=== PATIENT | male | born 1960 | race African-American/Black ===

== ENCOUNTER 2016-11-27 12:29 | Emergency (ER) | payer MEDICAID ==
--- NOTE | 2016-11-27 12:55 | ER Document Report ---
ED Medical Screen (RME) - General Stated Complaint: POSSIBLE ALLERGIC REACTION Notes: lip swelling started this am at 9am patient has been taking colchicine daily for one year for gout HDS, stable airway, able to talk and swallow I have greeted and performed a rapid initial assessment of this patient. A comprehensive ED assessment and evaluation of the patient, analysis of test results and completion of the medical decision making process will be conducted by additional ED providers. TRAVEL OUTSIDE OF THE [place] IN LAST 30 DAYS: No - Related Data Allergies/Adverse Reactions: No Known Allergies Allergy (Verified 11/27/16 12:54) Past Medical History - Past Medical History Cardiac Medical History: Reports: Hx Hypertension - Immunizations Hx Diphtheria, Pertussis, Tetanus Vaccination: Yes
--- NOTE | 2016-11-27 15:18 | ER Document Report ---
ED General - General Mode of Arrival: Ambulatory Information source: Patient TRAVEL OUTSIDE OF THE [place] IN LAST 30 DAYS: No - HPI Patient complains to provider of: swollen upper lip Onset: This morning Associated symptoms: Other - See above - General Chief Complaint: Lip Swelling Stated Complaint: POSSIBLE ALLERGIC REACTION Notes: Patient is a 56 year old male, with a past medical history including HTN and gout, who presents to the emergency department complaining of lip swelling secondary to a possible allergic reaction. Patient reports the swelling began at around 0900 this morning. Patient states he went to Dr. Baez and received a shot and then was told to come to the ED. Patient states that the swelling seems to have subsided now. Patient currently takes Allopurinol once a day, Colchicine 2x a day, and Amlodipine/benazepril. (LINSEY SERRANO) - Related Data Allergies/Adverse Reactions: No Known Allergies Allergy (Verified 11/27/16 12:54) Past Medical History - General Information source: Patient - Social History Smoking Status: Current Every Day Smoker Chew tobacco use (# tins/day): No Frequency of alcohol use: None Drug Abuse: None Family History: Reviewed & Not Pertinent, CAD, CVA, Hyperlipidemia, Hypertension Patient has suicidal ideation: No Patient has homicidal ideation: No - Past Medical History Cardiac Medical History: Reports: Hx Hypertension - Immunizations Hx Diphtheria, Pertussis, Tetanus Vaccination: Yes Review of Systems - Review of Systems Constitutional: No symptoms reported EENT: See HPI, Mouth swelling Cardiovascular: No symptoms reported Respiratory: No symptoms reported Gastrointestinal: No symptoms reported Genitourinary: No symptoms reported Male Genitourinary: No symptoms reported Musculoskeletal: No symptoms reported Skin: No symptoms reported Hematologic/Lymphatic: No symptoms reported Neurological/Psychological: No symptoms reported -: Yes All other systems reviewed and negative Physical Exam - Vital signs Interpretation: Normal - General General appearance: Appears well, Alert - HEENT Mouth/Lips: Other - Swollen upper lip Pharynx: Normal - Respiratory Respiratory status: No respiratory distress - Extremities General upper extremity: Normal inspection General lower extremity: Normal inspection - Neurological Neuro grossly intact: Yes Cognition: Normal Orientation: AAOx4 [place] Coma Scale Eye Opening: Spontaneous Alex Coma Scale Verbal: Oriented [place] Coma Scale Motor: Obeys Commands [place] Coma Scale Total: 15 Speech: Normal - Psychological Associated symptoms: Normal affect, Normal mood - Skin Skin Temperature: Warm Skin Moisture: Dry Skin Color: Normal Course - Re-evaluation Re-evalutation: 11/27/16 15:37 This 56-year-old male patient reports onset of upper lip swelling this morning shortly after taking a dose of colchicine. On exam there is no swelling of the posterior pharynx, uvula or tongue. The only edema is to the upper lip. The patient has been on colchicine for over a year, has also been on allopurinol for over a year. The colchicine bottle he has is dated 07/10/2016. He also takes a combination pill of amlodipine and benazepril. The patient was seen in the office where he received an injection in the buttock. He states the swelling has improved since that time. I called the office to find out the name of the injection he received prior to being sent to emergency room and it was Depo-Medrol 160 mg IM. I was also told by the PA that this was the patient's first dose of colchicine, that he had only filled the prescription on 11/10/2016 and today was the first time he ever took it. It turns out he filled the most recent prescription on that day, but had medication left over from his prior prescription and that was the one he was taking and produced a bottle. That prescription was filled on 07/10/2016. Patient states he has been taking that medication for over a year. I believe the benazepril is most likely cause of his diffuse upper lip swelling. He reports the swelling has gone down quite a bit since this morning. (HUSSEIN ROSADO) - Vital Signs Vital signs: Temp Pulse Resp BP Pulse Ox 98.1 F 75 14 143/88 H 96 11/27/16 12:54 11/27/16 12:54 11/27/16 12:54 11/27/16 12:54 11/27/16 12:54 (LINSEY SERRANO) (HUSSEIN ROSADO) Discharge - Discharge Clinical Impression: Angioedema Qualifiers: Encounter type: initial encounter Qualified Code(s): T78.3XXA - Angioneurotic edema, initial encounter Condition: Stable Disposition: HOME, SELF-CARE Additional Instructions: Angioedema: Angioedema is an allergic swelling of the soft tissues of the body. The lips and mouth are most commonly involved. Medicication allergy is a common cause, especially BOAZ inhibitor medicine (used for blood pressure control). Food, even something you've eaten frequently, can cause angioedema. In many cases it's not obvious what caused the swelling. Acute treatment may include adrenalin and antihistamines. If the cause is known, you must avoid this food or medicine in the future. If angioedema affects your air passages, it can be life-threatening. Return at once if you develop shortness of breath, faintness, severe pain, inability to swallow, or if swelling worsens.swelling worsens. YOUR LIP SWELLING IS LIKELY DUE TO THE BENAZOPRIL IN YOUR BLOOD PRESSURE MEDICATION. YOU SHOULD STOP TAKING THAT MEDICATION IMMEDIATELY. YOU WILL BE GIVE A PRESCRIPTION FOR THE AMLODIPINE PART OF YOUR BLOOD PRESSURE MEDICINE. FOLLOW UP WITH YOUR DOCTOR WEDNESDAY TO CHECK YOUR BLOOD PRESSURE AND TO ADJUST YOUR MEDICATIONS NEEDED. RETURN TO THE EMERGENCY ROOM IMMEDIATELY IF THE SWELLING GETS WORSE. Prescriptions: Amlodipine Besylate [Norvasc 10 mg Tablet] 10 mg PO DAILY #30 tablet Scribe Attestation: 11/27/16 15:46 I personally performed the services described in the documentation, reviewed and edited the documentation which was dictated to the scribe in my presence, and it accurately records my words and actions. (HUSSEIN ROSADO) Scribe Documentation - Scribe Written by Chele:: chele Hauser, 11/27/16, 0445 acting as scribe for :: Gabriel
[2016-11-27 16:19] VITALS: BP 139/81
== END 2016-11-27 16:02 | disposition home or self-care (01) ==
LOC: ER 12:29
DX: R22.0 Localized swelling, mass and lump, head (principal); T78.3XXA Angioneurotic edema, initial encounter; I10 Essential (primary) hypertension; M10.9 Gout, unspecified; F17.200 Nicotine dependence, unspecified, uncomplicated
CPT/HCPCS: 99283

== ENCOUNTER 2017-01-11 18:12 | Emergency (ER) | payer MEDICAID ==
--- NOTE | 2017-01-11 19:28 | ER Document Report ---
ED Medical Screen (RME) - General Stated Complaint: LIGHTHEADED, DIZZY,WEAK Time seen by provider: 19:26 Mode of Arrival: Ambulatory Information source: Patient Notes: 56-year-old male presents to ED for lightheadedness and dizziness states he passed out at work today. States she is on blood pressure medicine and he did take that this morning. States a couple gauze were standing around him told him to wake up and then he came to. States he hit the ground with his face as he has some abrasions on his face. States he vomited once today before he fell none since he fell. Consult to Dr. Zimmer and he stated that she get a head CT as well as lab work. I have greeted and performed a rapid initial assessment of this patient. A comprehensive ED assessment and evaluation of the patient, analysis of test results and completion of medical decision making process will be conducted by an additional ED providers. TRAVEL OUTSIDE OF THE [place] IN LAST 30 DAYS: No - Related Data Allergies/Adverse Reactions: No Known Allergies Allergy (Verified 11/27/16 12:54) Past Medical History - Past Medical History Cardiac Medical History: Reports: Hx Hypertension Renal/ Medical History: Denies: Hx Peritoneal Dialysis - Immunizations Hx Diphtheria, Pertussis, Tetanus Vaccination: Yes
[2017-01-11 21:20] LABS: APPEARANCE,URINE CLEAR; BILIRUBIN,URINE NEGATIVE (NEGATIVE); GLUCOSE, URINE NEGATIVE (NEGATIVE); KETONES,URINE NEGATIVE (NEGATIVE); LEUKOCYTE ESTERASE,URINE TRACE (NEGATIVE); NITRITE,URINE NEGATIVE (NEGATIVE); PROTEIN,URINE NEGATIVE (NEGATIVE); URINE SPECIFIC GRAVITY 1.011; UROBILINOGEN,URINE NEGATIVE mg/dL (<2.0)
[2017-01-11 21:21] LABS: ABSOLUTE BASOPHILS # (AUTO) 0.1 10^3/uL (0.0-0.2); ABSOLUTE LYMPHOCYTES (AUTO) 1.6 10^3/uL (0.5-4.7); ABSOLUTE MONOCYTES (AUTO) 0.5 10^3/uL (0.1-1.4); ABSOLUTE NEUT (AUTO) 5.3 10^3/uL (1.7-8.2); BASOPHILS % (AUTO) 0.7 % (0-2); EOSINOPHILS % (AUTO) 0.4 % (0-6); HEMATOCRIT 47.1 % (37.9-51.0); HEMOGLOBIN 15.3 g/dL (13.5-17.0); HGB HCT DIFFERENCE -1.2; LYMPHOCYTES % (AUTO) 20.9 % (13-45); MEAN CORPUSCULAR HEMOGLOBIN 28.5 pg (27.0-33.4); MEAN CORPUSCULAR HGB CONC 32.4 g/dL (32.0-36.0); MEAN CORPUSCULAR VOLUME 88 fl (80-97); MONOCYTES % (AUTO) 6.4 % (3-13); RED BLOOD COUNT 5.36 10^6/uL (4.35-5.55); RED CELL DISTRIBUTION WIDTH 15.4 % (11.5-14.0); SEGMENTED NEUTROPHILS % (AUTO) 71.6 % (42-78); WHITE BLOOD COUNT 7.4 10^3/uL (4.0-10.5)
[2017-01-11 21:35] LABS: ALANINE AMINOTRANSFERASE 51 U/L (21-72); ALBUMIN 4.7 g/dL (3.5-5.0); ALKALINE PHOSPHATASE 68 U/L (38-126); ANION GAP 12 (5-19); ASPARTATE AMINO TRANSFERASE 39 U/L (17-59); BILIRUBIN,DIRECT 0.2 mg/dL (0.0-0.4); BILIRUBIN,TOTAL 0.4 mg/dL (0.2-1.3); BLOOD UREA NITROGEN 15 mg/dL (7-20); CALCIUM 10.9 mg/dL (8.4-10.2); CARBON DIOXIDE 27 mmol/L (22-30); CHLORIDE 102 mmol/L (98-107); CREATINE KINASE 430 U/L (55-170); CREATININE RESULT 1.11 mg/dL (0.52-1.25); GLUCOSE 97 mg/dL (75-110); POTASSIUM 4.5 mmol/L (3.6-5.0); SODIUM 141.3 mmol/L (137-145); TOTAL PROTEIN 8.4 g/dL (6.3-8.2)
[2017-01-11 21:46] LABS: CREATINE KINASE MB 2.71 ng/mL (<4.55); TROPONIN I < 0.012 ng/mL
[2017-01-12] MEDS ORDERED: ONDANSETRON 4 MG TAB.RAPDIS PO ONE (02:04)
--- NOTE | 2017-01-12 02:04 | ER Document Report ---
ED General - General Chief Complaint: Dizziness Stated Complaint: LIGHTHEADED, DIZZY,WEAK Mode of Arrival: Ambulatory Notes: Patient is a 56-year-old male with past medical history of essential hypertension who presents after an episode of syncope today. 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 He began to feel lightheaded, nauseated and then did pass out. He apparently fell to the ground and did hit his forehead. He was unconscious for approximate 4-5 seconds until he woke up spontaneously. At the time of my assessment he denies any complaints. States he's had similar episodes of syncope in the past. He denies any history of CHF, chronic kidney disease, valvular heart disease, pulmonary embolus, aortic pathology, or family history of sudden . He did not notice things seem to precipitate his symptoms and he states that he felt better almost immediately after the episode of syncope. Denies any chest pain or shortness of breath prior to the episode or after. TRAVEL OUTSIDE OF THE [place] IN LAST 30 DAYS: No - Related Data Allergies/Adverse Reactions: No Known Allergies Allergy (Verified 11/27/16 12:54) Past Medical History - General Information source: Patient - Social History Smoking Status: Current Every Day Smoker Chew tobacco use (# tins/day): No Frequency of alcohol use: Occasional Drug Abuse: None Family History: Reviewed & Not Pertinent, CAD, CVA, Hyperlipidemia, Hypertension Patient has suicidal ideation: No Patient has homicidal ideation: No - Past Medical History Cardiac Medical History: Reports: Hx Hypertension Renal/ Medical History: Denies: Hx Peritoneal Dialysis - Immunizations Hx Diphtheria, Pertussis, Tetanus Vaccination: Yes Review of Systems - Review of Systems Notes: Constitutional: Negative for fever. HENT: Negative for sore throat. Eyes: Negative for visual changes. Cardiovascular: Negative for chest pain. Respiratory: Negative for shortness of breath. Gastrointestinal: Negative for abdominal pain, vomiting or diarrhea. Genitourinary: Negative for dysuria. Musculoskeletal: Negative for back pain. Skin: Negative for rash. Neurological: Negative for headaches, weakness or numbness. 10 point ROS negative except as marked above and in HPI. Physical Exam - Vital signs Vitals: Temp Pulse Resp BP Pulse Ox 98.2 F 88 18 164/91 H 98 01/11/17 19:28 01/11/17 19:28 01/11/17 19:28 01/11/17 19:28 01/11/17 19:28 Interpretation: Hypertensive Notes: PHYSICAL EXAMINATION: GENERAL: Well-appearing, well-nourished and in no acute distress. HEAD: Atraumatic, normocephalic. EYES: Pupils equal round and reactive to light, extraocular movements intact, sclera anicteric, conjunctiva are normal. ENT: nares patent, oropharynx clear without exudates. Moist mucous membranes. NECK: Normal range of motion, supple without lymphadenopathy LUNGS: Breath sounds clear to auscultation bilaterally and equal. No wheezes rales or rhonchi. HEART: Regular rate and rhythm without murmurs ABDOMEN: Soft, nontender, normoactive bowel sounds. No guarding, no rebound. No masses appreciated. EXTREMITIES: Normal range of motion, no pitting or edema. No cyanosis. NEUROLOGICAL: No focal neurological deficits. Moves all extremities spontaneously and on command. PSYCH: Normal mood, normal affect. SKIN: Warm, Dry, normal turgor, no rashes or lesions noted. Course - Re-evaluation Re-evalutation: 01/12/17 02:02 Presentation of syncope of unclear etiology. Patient normotensive, alert, without focal neurologic deficits at time of arrival. Denies syncope was during exertion. No preceding symptoms of palpitations, chest pain, or shortness of breath. Patient asymptomatic at time of arrival. EKG is without evidence of HCOM , right heart strain, ST changes to suggest ischemia, prolong QTc, delta wave, epsilon wave, or Brugada syndrome. Patient denies any family history of sudden cardiac , personal history of of structural heart disease. Patient denies any symptoms to suggest an acute PE, [place], TAD, SAH, seizure, or acute GI bleed as the etiology of their syncope today. On exam, no murmurs to suggest critical aortic stenosis as possible etiology. Patient did have a broad-spectrum of laboratories ordered in triage which are noted to be overall unremarkable. CT the head was also obtained for unclear reasons and is likewise noted to be normal. Based on overall clinical history, exam findings, vitals, and patient s appearance, I feel it is safe for patient to be discharged home at this time with close outpatient follow-up and strict return precautions. Patient is in agreement with this plan, has verbalized indications for return to ED, and questions have been answered. - Vital Signs Vital signs: Temp Pulse Resp BP Pulse Ox 98.7 F 85 16 155/82 H 98 01/12/17 02:58 01/12/17 02:58 01/12/17 02:58 01/12/17 02:58 01/12/17 02:58 - Laboratory Result Diagrams: 01/11/17 20:39 01/11/17 20:39 Laboratory results interpreted by me: 01/11/17 01/11/17 01/11/17 20:39 20:39 20:39 RDW 15.4 H Calcium 10.9 H Creatine Kinase 430 H Total Protein 8.4 H Ur Leukocyte Esterase TRACE H - Diagnostic Test Radiology reviewed: Image reviewed, Reports reviewed Radiology results interpreted by me: 01/12/17 02:03 CT head: No acute intracranial bleed - EKG Interpretation by Me Additional EKG results interpreted by me: 01/12/17 02:03 Normal sinus rhythm. Rate 79. No ST elevations or depressions. QTC is 422. Discharge - Discharge Clinical Impression: Essential hypertension Syncope Qualifiers: Syncope type: unspecified Qualified Code(s): R55 - Syncope and collapse Condition: Good Disposition: HOME, SELF-CARE Additional Instructions: You were seen today after an episode of passing out. Your EKG here is normal. At this time, we do not feel that your episode of passing out was from any life- threatening cause. Please drink plenty of fluids over the next several days. Return to emergency department if you have any further episodes of syncope, headache, weakness, numbness, chest pain, or shortness of breath. Please follow up closely with your primary care physician. Forms: Elevated Blood Pressure
[2017-01-12 03:01] VITALS: BP 155/82
--- NOTE | 2017-01-12 08:15 | EKG REPORT ---
SEVERITY:- BORDERLINE ECG - SINUS RHYTHM PROBABLE LEFT ATRIAL ABNORMALITY : Confirmed by: Noah Jalloh MD 12-Jan-2017 08:15:13
== END 2017-01-12 02:58 | disposition home or self-care (01) ==
LOC: ER 18:12
DX: I10 Essential (primary) hypertension (principal); R55 Syncope and collapse; R42 Dizziness and giddiness; R53.1 Weakness; F17.200 Nicotine dependence, unspecified, uncomplicated
CPT/HCPCS: 36415; 70450; 80053; 81001; 82550; 82553; 84484; 85025; 93005; 93010; 99284